=== PATIENT | female | born 1965 | race Caucasian/White ===

== ENCOUNTER → 2016-11-30 | Outpatient (REF) | payer OTHER ==
[2016-11-30 17:04] LABS: ALBUMIN 4.1 GM/DL (3.2-5.2); ALBUMIN/GLOBULIN RATIO 1.28 (1.00-1.93); ALKALINE PHOSPHATASE 60 U/L (45-117); ALT/SGPT 128 U/L (12-78); ANION GAP 6 MEQ/L (8-16); AST/SGOT 46 U/L (15-37); BILIRUBIN,TOTAL 0.6 MG/DL (0.2-1.0); BLOOD UREA NITROGEN 14 MG/DL (7-18); CALCIUM LEVEL 9.1 MG/DL (8.5-10.1); CARBON DIOXIDE LEVEL 34 MEQ/L (21-32); CHLORIDE LEVEL 102 MEQ/L (98-107); CHOLESTEROL LEVEL 208 MG/DL (<200); CREATININE FOR GFR 0.81 MG/DL (0.55-1.02); GLOMERULAR FILTRATION RATE > 60.0 (>51); GLUCOSE, FASTING 96 MG/DL (70-105); POTASSIUM SERUM 3.6 MEQ/L (3.5-5.1); SODIUM LEVEL 142 MEQ/L (136-145); TOTAL PROTEIN 7.3 GM/DL (6.4-8.2); TRIGLYCERIDES LEVEL 121 MG/DL (<150)
[2016-11-30 17:10] LABS: MEAN CORPUSCULAR HEMOGLOBIN 30.4 pg (27.0-33.0); MEAN CORPUSCULAR HGB CONC 33.2 g/dl (32.0-36.5); MEAN CORPUSCULAR VOLUME 91.5 fl (80.0-96.0); RED CELL DISTRIBUTION WIDTH 12.3 % (11.5-14.5); WHITE BLOOD COUNT 5.2 K/mm3 (4.0-10.0)
== END ==
LOC: M SFHCCLAY 10:44
PROVIDERS: ATTEND Nurse Practitioner Family
DX: I10 Essential (primary) hypertension (principal); R73.01 Impaired fasting glucose; E78.4 Other hyperlipidemia; E03.9 Hypothyroidism, unspecified; E55.9 Vitamin D deficiency, unspecified

== ENCOUNTER → 2017-03-05 | Outpatient (CLI) | payer OTHER ==
--- NOTE | 2017-03-08 16:33 | SLEEPHOME ---
DATE OF PROCEDURE: 03/05/2017 REFERRING PHYSICIAN: Dr. Calzada INTERPRETATION: Diagnostic home sleep testing was performed due to concern for the obstructive sleep apnea syndrome. For testing, a NOX-T3 respiratory monitoring device was used. Continuous record was made of pulse, oxygen saturation, airflow, chest and abdominal strain and body position. 10 hours and 59 minutes of data were reviewed. Of these, 8 hours and 13 minutes were marked as time in bed. During the interval marked time in bed, there were 79 respiratory events identified of 10 seconds in duration or greater for a respiratory event index of 9.6. The events were primarily obstructive. Baseline pulse rate 63 beats per minute. Pulse rate ranged 52 to 85. Baseline saturation 95%. Lowest oxygen saturation 89%. Testing was performed in both the supine and nonsupine positions. IMPRESSION: Abnormal home sleep testing with repetitive respiratory events and oxygen desaturations to 89% with a respiratory event index of 9.6, is consistent with the obstructive sleep apnea syndrome. RECOMMENDATION: The patient should be referred for formal sleep evaluation and in laboratory pressure titration given the frequency of events and oxygen desaturation seen.
== END ==
LOC: M SLEEP HO 14:30
PROVIDERS: ATTEND Internal Medicine Sleep Medicine
DX: G47.33 Obstructive sleep apnea (adult) (pediatric) (principal)

== ENCOUNTER → 2018-02-26 | Outpatient (REF) | payer OTHER ==
[2018-02-26 16:53] LABS: ESTIMATED AVERAGE GLUCOSE 114 MG/DL (60-110); HEMOGLOBIN A1c 5.6 %
[2018-02-26 17:05] LABS: HEMATOCRIT 40.6 % (36.0-47.0); HEMOGLOBIN 13.8 g/dl (12.0-15.5); MEAN CORPUSCULAR HEMOGLOBIN 31.1 pg (27.0-33.0); MEAN CORPUSCULAR VOLUME 91.4 fl (80.0-96.0); PLATELET COUNT, AUTOMATED 242 10^3/uL (150-450); RED BLOOD COUNT 4.44 10^6/uL (4.00-5.40); RED CELL DISTRIBUTION WIDTH 12.7 % (11.5-14.5); WHITE BLOOD COUNT 4.8 10^3/uL (4.0-10.0)
[2018-02-26 17:14] LABS: TOTAL 25(OH) VITAMIN D 34.2 NG/ML (30.0-100.0)
[2018-02-26 17:15] LABS: ALBUMIN 4.2 GM/DL (3.2-5.2); ALBUMIN/GLOBULIN RATIO 1.35 (1.00-1.93); ALKALINE PHOSPHATASE 56 U/L (45-117); ALT/SGPT 77 U/L (12-78); ANION GAP 9 MEQ/L (8-16); AST/SGOT 41 U/L (7-37); BLOOD UREA NITROGEN 19 MG/DL (7-18); CALCIUM LEVEL 9.1 MG/DL (8.5-10.1); CARBON DIOXIDE LEVEL 31 MEQ/L (21-32); CHLORIDE LEVEL 101 MEQ/L (98-107); CHOLESTEROL LEVEL 256 MG/DL (<200); CHOLESTEROL RISK RATIO 4.338 (<5); CREATININE FOR GFR 0.87 MG/DL (0.55-1.30); FREE THYROXINE INDEX 2.4 % (1.3-4.8); GLOMERULAR FILTRATION RATE > 60.0 (>51); GLUCOSE, FASTING 84 MG/DL (70-100); HDL CHOLESTEROL 59 MG/DL (>40); LDL CHOLESTEROL 170.2 MG/DL (<100); NON-HDL-C 197 MG/DL; POTASSIUM SERUM 3.2 MEQ/L (3.5-5.1); SODIUM LEVEL 141 MEQ/L (136-145); T UPTAKE 29 % (30-39); THYROXINE (T4) 8.4 UG/DL (4.5-12.0); TOTAL PROTEIN 7.3 GM/DL (6.4-8.2); TRIGLYCERIDES LEVEL 134 MG/DL (<150)
== END ==
LOC: M SFHCCLAY 13:22
DX: K21.9 Gastro-esophageal reflux disease without esophagitis (principal); I10 Essential (primary) hypertension; R73.01 Impaired fasting glucose; E78.4 Other hyperlipidemia; E03.9 Hypothyroidism, unspecified; E55.9 Vitamin D deficiency, unspecified
CPT/HCPCS: 84443

== ENCOUNTER → 2018-04-07 | Outpatient (REF) | payer OTHER | LOC: M SFHCPLAZ 04-08 11:05 | DX: L57.0 Actinic keratosis (principal); L81.4 Other melanin hyperpigmentation | CPT/HCPCS: 88305 ==

== ENCOUNTER → 2018-05-06 | Outpatient (REF) | payer OTHER | LOC: M SFHCPLAZ 17:25 | DX: D23.5 Other benign neoplasm of skin of trunk (principal) ==

== ENCOUNTER → 2018-06-26 | Outpatient (REF) | payer OTHER ==
[2018-06-26 12:52] LABS: ESTIMATED AVERAGE GLUCOSE 117 MG/DL (60-110); HEMOGLOBIN A1c 5.7 %
[2018-06-26 14:24] LABS: CHOLESTEROL LEVEL 226 MG/DL (<200); CHOLESTEROL RISK RATIO 4.346 (<5); HDL CHOLESTEROL 52 MG/DL (>40); LDL CHOLESTEROL 147 MG/DL (<100); NON-HDL-C 174 MG/DL; POTASSIUM SERUM 3.1 MEQ/L (3.5-5.1); TRIGLYCERIDES LEVEL 136 MG/DL (<150)
== END ==
LOC: M SFHCCLAY 08:49
DX: R73.01 Impaired fasting glucose (principal); E78.49 Other hyperlipidemia; E03.9 Hypothyroidism, unspecified

== ENCOUNTER → 2019-07-08 | Outpatient (REF) | payer OTHER ==
[2019-07-08 11:54] LABS: HEMATOCRIT 42.9 % (36.0-47.0); HEMOGLOBIN 13.7 g/dl (12.0-15.5); MEAN CORPUSCULAR HEMOGLOBIN 29.8 pg (27.0-33.0); MEAN CORPUSCULAR HGB CONC 31.9 g/dl (32.0-36.5); MEAN CORPUSCULAR VOLUME 93.3 fl (80.0-96.0); PLATELET COUNT, AUTOMATED 245 10^3/uL (150-450); WHITE BLOOD COUNT 7.5 10^3/uL (4.0-10.0)
[2019-07-08 12:21] LABS: ALBUMIN 4.3 GM/DL (3.2-5.2); ALT/SGPT 34 U/L (12-78); BILIRUBIN,TOTAL 0.8 MG/DL (0.2-1.0); BLOOD UREA NITROGEN 20 MG/DL (7-18); CALCIUM LEVEL 9.6 MG/DL (8.5-10.1); CARBON DIOXIDE LEVEL 32 MEQ/L (21-32); CHLORIDE LEVEL 102 MEQ/L (98-107); CHOLESTEROL LEVEL 244 MG/DL (<200); CHOLESTEROL RISK RATIO 4.979 (<5); CREATININE FOR GFR 0.81 MG/DL (0.55-1.30); GLOMERULAR FILTRATION RATE > 60.0 (>51); GLUCOSE, FASTING 110 MG/DL (70-100); HDL CHOLESTEROL 49 MG/DL (>40); LDL CHOLESTEROL 173 MG/DL (<100); NON-HDL-C 195 MG/DL; POTASSIUM SERUM 3.3 MEQ/L (3.5-5.1); SODIUM LEVEL 141 MEQ/L (136-145); THYROID STIMULATING HORMONE 0.123 uIU/ML (0.358-3.740); TOTAL 25(OH) VITAMIN D 45.6 NG/ML (30.0-100.0); TOTAL PROTEIN 7.1 GM/DL (6.4-8.2); TRIGLYCERIDES LEVEL 109 MG/DL (<150)
[2019-07-08 12:23] LABS: HEMOGLOBIN A1c 5.6 %
== END ==
LOC: M SFHCCLAY 08:09
PROVIDERS: ATTEND Nurse Practitioner Family
DX: K21.9 Gastro-esophageal reflux disease without esophagitis (principal); I10 Essential (primary) hypertension; R73.01 Impaired fasting glucose; E78.49 Other hyperlipidemia; E03.9 Hypothyroidism, unspecified; E55.9 Vitamin D deficiency, unspecified

== ENCOUNTER → 2020-05-02 | Outpatient (REF) | payer OTHER ==
[2020-05-02 12:59] LABS: HEMATOCRIT 42.4 % (36.0-47.0); HEMOGLOBIN 13.5 g/dl (12.0-15.5); MEAN CORPUSCULAR HEMOGLOBIN 30.8 pg (27.0-33.0); MEAN CORPUSCULAR HGB CONC 31.8 g/dl (32.0-36.5); MEAN CORPUSCULAR VOLUME 96.6 fl (80.0-96.0); PLATELET COUNT, AUTOMATED 235 10^3/uL (150-450); RED BLOOD COUNT 4.39 10^6/uL (4.00-5.40); WHITE BLOOD COUNT 5.1 10^3/uL (4.0-10.0)
[2020-05-02 13:34] LABS: ALBUMIN 4.2 GM/DL (3.2-5.2); ALT/SGPT 21 U/L (12-78); BILIRUBIN,TOTAL 0.4 MG/DL (0.2-1.0); BLOOD UREA NITROGEN 19 MG/DL (7-18); CALCIUM LEVEL 8.8 MG/DL (8.5-10.1); CARBON DIOXIDE LEVEL 29 MEQ/L (21-32); CHLORIDE LEVEL 105 MEQ/L (98-107); CHOLESTEROL LEVEL 348 MG/DL (<200); CHOLESTEROL RISK RATIO 4.767 (<5); CREATININE FOR GFR 0.88 MG/DL (0.55-1.30); GLOMERULAR FILTRATION RATE > 60.0 (>51); GLUCOSE, FASTING 89 MG/DL (70-100); HDL CHOLESTEROL 73 MG/DL (>40); LDL CHOLESTEROL 245 MG/DL (<100); NON-HDL-C 275 MG/DL; POTASSIUM SERUM 4.2 MEQ/L (3.5-5.1); SODIUM LEVEL 139 MEQ/L (136-145); TOTAL 25(OH) VITAMIN D 39.1 NG/ML (30.0-100.0); TOTAL PROTEIN 7.1 GM/DL (6.4-8.2); TRIGLYCERIDES LEVEL 148 MG/DL (<150)
== END ==
LOC: M SFHCCLAY 08:54
PROVIDERS: ATTEND Nurse Practitioner Family
DX: I10 Essential (primary) hypertension (principal); E78.5 Hyperlipidemia, unspecified; E03.9 Hypothyroidism, unspecified; E55.9 Vitamin D deficiency, unspecified

== ENCOUNTER → 2020-12-09 | Outpatient (REF) | payer OTHER ==
[2020-12-09 11:47] LABS: HEMATOCRIT 41.1 % (36.0-47.0); HEMOGLOBIN 13.4 g/dl (12.0-15.5); MEAN CORPUSCULAR HEMOGLOBIN 31.5 pg (27.0-33.0); MEAN CORPUSCULAR HGB CONC 32.6 g/dl (32.0-36.5); MEAN CORPUSCULAR VOLUME 96.7 fl (80.0-96.0); PLATELET COUNT, AUTOMATED 227 10^3/uL (150-450); RED BLOOD COUNT 4.25 10^6/uL (4.00-5.40); WHITE BLOOD COUNT 5.4 10^3/uL (4.0-10.0)
[2020-12-09 12:48] LABS: ALBUMIN 4.6 GM/DL (3.2-5.2); ALT/SGPT 34 U/L (12-78); BILIRUBIN,TOTAL 0.6 MG/DL (0.2-1.0); BLOOD UREA NITROGEN 11 MG/DL (7-18); CALCIUM LEVEL 9.2 MG/DL (8.5-10.1); CARBON DIOXIDE LEVEL 29 MEQ/L (21-32); CHLORIDE LEVEL 105 MEQ/L (98-107); CHOLESTEROL LEVEL 452 MG/DL (<200); CHOLESTEROL RISK RATIO 5.512 (<5); CREATININE FOR GFR 0.94 MG/DL (0.55-1.30); GLOMERULAR FILTRATION RATE > 60.0 (>51); GLUCOSE, FASTING 95 MG/DL (70-100); HDL CHOLESTEROL 82 MG/DL (>40); LDL CHOLESTEROL 326 MG/DL (<100); NON-HDL-C 370 MG/DL; POTASSIUM SERUM 3.8 MEQ/L (3.5-5.1); SODIUM LEVEL 141 MEQ/L (136-145); TOTAL 25(OH) VITAMIN D 26.2 NG/ML (30.0-100.0); TOTAL PROTEIN 7.5 GM/DL (6.4-8.2); TRIGLYCERIDES LEVEL 221 MG/DL (<150)
== END ==
LOC: M SFHCCLAY 08:11
PROVIDERS: ATTEND Nurse Practitioner Family
DX: E78.5 Hyperlipidemia, unspecified (principal); E03.9 Hypothyroidism, unspecified; K21.9 Gastro-esophageal reflux disease without esophagitis; I10 Essential (primary) hypertension; E55.9 Vitamin D deficiency, unspecified

== ENCOUNTER → 2021-08-24 | Outpatient (REF) | payer OTHER ==
[2021-08-24 12:25] LABS: BASO # 0.1 10^3/uL (0.0-0.2); BASO % 0.9 % (0.0-1.0); EOS # 0.1 10^3/uL (0.0-0.5); EOS % 1.8 % (0.0-3.0); LYMPH # 1.6 10^3/uL (1.5-5.0); LYMPH % 29.9 % (24.0-44.0); MEAN CORPUSCULAR HEMOGLOBIN 30.7 pg (27.0-33.0); MEAN CORPUSCULAR HGB CONC 31.7 g/dl (32.0-36.5); MEAN CORPUSCULAR VOLUME 96.9 fl (80.0-96.0); MONO # 0.5 10^3/uL (0.0-0.8); MONO % 9.2 % (2.0-8.0); NEUTROPHILS # 3.1 10^3/uL (1.5-8.5); PLATELET COUNT, AUTOMATED 202 10^3/uL (150-450); RED BLOOD COUNT 4.23 10^6/uL (4.00-5.40); WHITE BLOOD COUNT 5.4 10^3/uL (4.0-10.0)
[2021-08-24 13:48] LABS: HEMOGLOBIN A1c 5.6 %
[2021-08-24 14:33] LABS: ALT/SGPT 53 U/L (12-78); BILIRUBIN,TOTAL 0.3 MG/DL (0.2-1.0); BLOOD UREA NITROGEN 16 MG/DL (7-18); CALCIUM LEVEL 8.7 MG/DL (8.5-10.1); CARBON DIOXIDE LEVEL 31 MEQ/L (21-32); CHLORIDE LEVEL 105 MEQ/L (98-107); CREATININE FOR GFR 0.89 MG/DL (0.55-1.30); GLOMERULAR FILTRATION RATE > 60.0 (>51); GLUCOSE, FASTING 93 MG/DL (70-100); POTASSIUM SERUM 3.7 MEQ/L (3.5-5.1); SODIUM LEVEL 140 MEQ/L (136-145)
[2021-08-24 14:34] LABS: ALBUMIN 4.5 GM/DL (3.2-5.2); CHOLESTEROL LEVEL 426 MG/DL (<200); HDL CHOLESTEROL 62 MG/DL (>40); LDL CHOLESTEROL 305 MG/DL (<100); NON-HDL-C 364 MG/DL; TOTAL PROTEIN 7.5 GM/DL (6.4-8.2); TRIGLYCERIDES LEVEL 293 MG/DL (<150)
[2021-08-24 14:51] LABS: CREATININE, URINE 77.2 MG/DL; MALB URINE SIEMENS 16.4 MG/L; MAU/CREAT RATIO 21.2 MCG/MG (0.0-30.0)
[2021-08-25 10:39] LABS: TOTAL 25(OH) VITAMIN D 17.9 NG/ML (30.0-100.0)
== END ==
LOC: M SFHCCLAY 08:41
PROVIDERS: ATTEND Nurse Practitioner Family
DX: E03.9 Hypothyroidism, unspecified (principal); E55.9 Vitamin D deficiency, unspecified; I10 Essential (primary) hypertension; R73.01 Impaired fasting glucose; K21.9 Gastro-esophageal reflux disease without esophagitis; M32.9 Systemic lupus erythematosus, unspecified; D68.59 Other primary thrombophilia

== ENCOUNTER → 2022-01-08 | Outpatient (REF) | payer OTHER | LOC: M SFHCCLAY 15:27 | PROVIDERS: ATTEND Nurse Practitioner Family | DX: E03.9 Hypothyroidism, unspecified (principal); E55.9 Vitamin D deficiency, unspecified; I10 Essential (primary) hypertension; Z53.9 Procedure and treatment not carried out, unspecified reason ==

== ENCOUNTER → 2022-12-31 | Outpatient (REF) | payer OTHER ==
[2022-12-31 18:45] LABS: BASO # 0.1 10^3/uL (0.0-0.2); BASO % 0.8 % (0.0-1.0); EOS # 0.1 10^3/uL (0.0-0.5); EOS % 2.1 % (0.0-3.0); HEMATOCRIT 38.6 % (36.0-47.0); HEMOGLOBIN 12.3 g/dl (12.0-15.5); LYMPH # 1.9 10^3/uL (1.5-5.0); LYMPH % 30.9 % (24.0-44.0); MEAN CORPUSCULAR HEMOGLOBIN 30.6 pg (27.0-33.0); MEAN CORPUSCULAR HGB CONC 31.9 g/dl (32.0-36.5); MONO # 0.5 10^3/uL (0.0-0.8); MONO % 7.9 % (2.0-8.0); NEUTROPHILS # 3.6 10^3/uL (1.5-8.5); NEUTROPHILS % 58.1 % (36.0-66.0); PLATELET COUNT, AUTOMATED 204 10^3/uL (150-450); RED BLOOD COUNT 4.02 10^6/uL (4.00-5.40); WHITE BLOOD COUNT 6.1 10^3/uL (4.0-10.0)
[2022-12-31 19:14] LABS: ALBUMIN 4.8 G/DL (3.2-5.2); BILIRUBIN,TOTAL 0.6 MG/DL (0.3-1.2); CALCIUM LEVEL 9.5 MG/DL (8.5-10.1); CHOLESTEROL RISK RATIO 4.86 (<5); CREATININE FOR GFR 1.11 MG/DL (0.55-1.30); FREE T4 0.14 NG/DL (0.89-1.76); GLOMERULAR FILTRATION RATE 53.9 (>51); HDL CHOLESTEROL 70.9 MG/DL (>40); HEMOGLOBIN A1c 5.5 % (4.0-6.0); LDL CHOLESTEROL 240.7 MG/DL (<100); NON-HDL-C 274.1 MG/DL; POTASSIUM SERUM 3.8 MMOL/L (3.5-5.1); TOTAL PROTEIN 7.3 G/DL (5.7-8.2)
[2022-12-31 19:15] LABS: THYROID STIMULATING HORMONE 16.084 uIU/ML (0.55-4.78)
== END ==
LOC: M SFHCCLAY 14:18
PROVIDERS: ATTEND Nurse Practitioner Family
DX: E03.9 Hypothyroidism, unspecified (principal); E55.9 Vitamin D deficiency, unspecified; I10 Essential (primary) hypertension; R73.01 Impaired fasting glucose; K21.9 Gastro-esophageal reflux disease without esophagitis; M32.9 Systemic lupus erythematosus, unspecified; D68.59 Other primary thrombophilia

== ENCOUNTER → 2023-04-02 | Outpatient (REF) | payer OTHER ==
[2023-04-02 12:11] LABS: ALKALINE PHOSPHATASE 64 U/L (46-116); ALT/SGPT 16 U/L (7.0-40); AST/SGOT 11 U/L (<34); BILIRUBIN,TOTAL 0.3 MG/DL (0.3-1.2); BLOOD UREA NITROGEN 16 MG/DL (9-23); CARBON DIOXIDE LEVEL 30 MMOL/L (20-31); CHLORIDE LEVEL 106 MMOL/L (98-107); CHOLESTEROL LEVEL 308 MG/DL (<200); CHOLESTEROL RISK RATIO 5.07 (<5); CREATININE FOR GFR 0.74 MG/DL (0.55-1.30); FREE T4 0.28 NG/DL (0.89-1.76); GLOMERULAR FILTRATION RATE > 60.0 (>51); GLUCOSE, FASTING 109 MG/DL (60-100); HDL CHOLESTEROL 60.7 MG/DL (>40); LDL CHOLESTEROL 206.5 MG/DL (<100); NON-HDL-C 247.3 MG/DL; POTASSIUM SERUM 4.5 MMOL/L (3.5-5.1); SODIUM LEVEL 141 MMOL/L (136-145); THYROID STIMULATING HORMONE 10.327 uIU/ML (0.55-4.78); TOTAL PROTEIN 6.8 G/DL (5.7-8.2); TRIGLYCERIDES LEVEL 204 MG/DL (<150)
== END ==
LOC: M SFHCCLAY 07:45
PROVIDERS: ATTEND Nurse Practitioner Family
DX: E03.9 Hypothyroidism, unspecified (principal); E55.9 Vitamin D deficiency, unspecified; I10 Essential (primary) hypertension

== ENCOUNTER → 2023-08-29 | Outpatient (REF) | payer OTHER ==
[2023-08-29 19:17] LABS: BASO % 0.4 % (0.0-1.0); EOS # 0.1 10^3/uL (0.0-0.5); EOS % 0.8 % (0.0-3.0); HEMATOCRIT 37.4 % (36.0-47.0); LYMPH # 1.4 10^3/uL (1.5-5.0); LYMPH % 17.2 % (24.0-44.0); MEAN CORPUSCULAR HEMOGLOBIN 30.4 pg (27.0-33.0); MEAN CORPUSCULAR HGB CONC 32.1 g/dl (32.0-36.5); MEAN CORPUSCULAR VOLUME 94.7 fl (80.0-96.0); MONO # 0.7 10^3/uL (0.0-0.8); MONO % 8.6 % (2.0-8.0); NEUTROPHILS % 72.8 % (36.0-66.0); PLATELET COUNT, AUTOMATED 279 10^3/uL (150-450); RED BLOOD COUNT 3.95 10^6/uL (4.00-5.40); WHITE BLOOD COUNT 8.3 10^3/uL (4.0-10.0)
[2023-08-29 19:36] LABS: ALBUMIN 3.7 G/DL (3.2-5.2); ALKALINE PHOSPHATASE 55 U/L (46-116); ALT/SGPT 14 U/L (7.0-40); AST/SGOT 11 U/L (<34); BILIRUBIN,TOTAL 0.3 MG/DL (0.3-1.2); BLOOD UREA NITROGEN 14 MG/DL (9-23); CALCIUM LEVEL 8.8 MG/DL (8.5-10.1); CARBON DIOXIDE LEVEL 30 MMOL/L (20-31); CHLORIDE LEVEL 107 MMOL/L (98-107); CREATININE FOR GFR 0.77 MG/DL (0.55-1.30); GLOMERULAR FILTRATION RATE > 60.0 (>51); GLUCOSE, FASTING 91 MG/DL (60-100); POTASSIUM SERUM 4.3 MMOL/L (3.5-5.1); SODIUM LEVEL 139 MMOL/L (136-145); TOTAL PROTEIN 6.2 G/DL (5.7-8.2)
== END ==
LOC: M LABDRAWC 17:35
PROVIDERS: ATTEND Internal Medicine
DX: Z79.899 Other long term (current) drug therapy (principal)

== ENCOUNTER → 2023-10-01 | Outpatient (REF) | payer OTHER ==
[2023-10-01 11:44] LABS: BASO % 0.7 % (0.0-1.0); EOS # 0.1 10^3/uL (0.0-0.5); EOS % 2.3 % (0.0-3.0); HEMATOCRIT 40.9 % (36.0-47.0); HEMOGLOBIN 13.2 g/dl (12.0-15.5); LYMPH # 1.5 10^3/uL (1.5-5.0); LYMPH % 25.7 % (24.0-44.0); MEAN CORPUSCULAR HEMOGLOBIN 29.6 pg (27.0-33.0); MEAN CORPUSCULAR HGB CONC 32.3 g/dl (32.0-36.5); MEAN CORPUSCULAR VOLUME 91.7 fl (80.0-96.0); MONO # 0.6 10^3/uL (0.0-0.8); MONO % 10.4 % (2.0-8.0); NEUTROPHILS # 3.6 10^3/uL (1.5-8.5); NEUTROPHILS % 60.7 % (36.0-66.0); PLATELET COUNT, AUTOMATED 267 10^3/uL (150-450); RED BLOOD COUNT 4.46 10^6/uL (4.00-5.40)
[2023-10-01 11:45] LABS: C REACTIVE PROTEIN QUANTITATIV < 0.40 MG/DL (<1.0)
[2023-10-01 11:46] LABS: ALBUMIN 4.2 G/DL (3.2-5.2); ALKALINE PHOSPHATASE 57 U/L (46-116); ALT/SGPT 11 U/L (7.0-40); AST/SGOT 11 U/L (<34); BILIRUBIN,TOTAL 0.5 MG/DL (0.3-1.2); BLOOD UREA NITROGEN 13 MG/DL (9-23); CALCIUM LEVEL 8.9 MG/DL (8.5-10.1); CARBON DIOXIDE LEVEL 30 MMOL/L (20-31); CHLORIDE LEVEL 107 MMOL/L (98-107); CREATININE FOR GFR 0.57 MG/DL (0.55-1.30); GLOMERULAR FILTRATION RATE > 60.0 (>51); GLUCOSE, FASTING 99 MG/DL (60-100); POTASSIUM SERUM 4.2 MMOL/L (3.5-5.1); SODIUM LEVEL 140 MMOL/L (136-145); TOTAL PROTEIN 6.7 G/DL (5.7-8.2)
== END ==
LOC: M LABDRAWC 11:09
PROVIDERS: ATTEND Internal Medicine
DX: Z79.899 Other long term (current) drug therapy (principal)

== ENCOUNTER 2023-11-14 10:02 | Day surgery (SDC) | payer OTHER ==
[~2023-11-14] VITALS: Ht 157.5 cm; Wt 85.4 kg
[~2023-11-14 10:02] MED LIST: ALBU8.5H INH; AZAT50TA37 PO; BENL200I SC; HYDR200T46 PO; IMUR50TA10 PO; LEVO200T4 PO; LEVO25TA5 PO
[2023-11-14] MEDS: NS 1,000 ML IV ONE (10:38)
[2023-11-14] MEDS ORDERED: fentaNYL 100 MCG/2 ML INJECTION As Ordered ONE (11:45)
[2023-11-14] MEDS ORDERED: LIDOCAINE 2% 100MG/5ML SDV (FOR ANES.) As Ordered ONE (11:49)
[2023-11-14] MEDS ORDERED: propofoL 200 MG/20 ML VIAL As Ordered ONE (11:49)
[2023-11-14 12:12] VITALS: TEMP 98.4
[2023-11-14 12:30] VITALS: BP 171/89; O2SAT 95
== END 2023-11-14 12:40 | disposition home or self-care (01) ==
LOC: M OPP 10:02
PROVIDERS: ATTEND Surgery
DX: Z12.11 Encounter for screening for malignant neoplasm of colon (principal); K31.89 Other diseases of stomach and duodenum; R13.10 Dysphagia, unspecified; R10.13 Epigastric pain; J45.909 Unspecified asthma, uncomplicated; M32.9 Systemic lupus erythematosus, unspecified; G47.30 Sleep apnea, unspecified; Z87.891 Personal history of nicotine dependence; Z79.52 Long term (current) use of systemic steroids; Z79.890 Hormone replacement therapy; Z79.899 Other long term (current) drug therapy; Z88.6 Allergy status to analgesic agent; Z91.010 Allergy to peanuts; Z91.040 Latex allergy status; Z91.048 Other nonmedicinal substance allergy status
CPT/HCPCS: 43239; 45378; 88305; J3010

== ENCOUNTER → 2024-01-16 | Outpatient (CLI) | payer OTHER ==
[~2024-01-16] MED LIST changes: +E-Z-GAS II EFFERVESCENT PACKET (SODIUM BICARB./CITRIC ACID/SIMETHICONE) As Ordered ONE; +E-Z-HD 98% w/w 340GM SUSP BTL As Ordered ONE; +E-Z-PAQUE 96% w/w SUSP 176GM BTL As Ordered ONE
== END ==
LOC: M RAD 09:42
PROVIDERS: ATTEND Physician Assistant
DX: R13.10 Dysphagia, unspecified (principal)

== ENCOUNTER → 2024-04-07 | Outpatient (REF) | payer OTHER ==
[~2024-04-07] MED LIST changes: -E-Z-GAS II EFFERVESCENT PACKET (SODIUM BICARB./CITRIC ACID/SIMETHICONE) As Ordered ONE; -E-Z-HD 98% w/w 340GM SUSP BTL As Ordered ONE; -E-Z-PAQUE 96% w/w SUSP 176GM BTL As Ordered ONE
[2024-04-07 11:33] LABS: BASO % 0.7 % (0.0-1.0); EOS # 0.1 10^3/uL (0.0-0.5); EOS % 1.6 % (0.0-3.0); HEMATOCRIT 39.5 % (36.0-47.0); HEMOGLOBIN 12.8 g/dl (12.0-15.5); LYMPH # 1.3 10^3/uL (1.5-5.0); LYMPH % 22.4 % (24.0-44.0); MEAN CORPUSCULAR HEMOGLOBIN 31.8 pg (27.0-33.0); MEAN CORPUSCULAR HGB CONC 32.4 g/dl (32.0-36.5); MONO # 0.5 10^3/uL (0.0-0.8); MONO % 9.6 % (2.0-8.0); NEUTROPHILS # 3.7 10^3/uL (1.5-8.5); NEUTROPHILS % 65.5 % (36.0-66.0); PLATELET COUNT, AUTOMATED 267 10^3/uL (150-450); RED BLOOD COUNT 4.03 10^6/uL (4.00-5.40); WHITE BLOOD COUNT 5.6 10^3/uL (4.0-10.0)
[2024-04-07 11:41] LABS: IRON (FE) 56 UG/DL (50-170); PERCENT SATURATION 17.7 % (13.2-45.0); TOTAL IRON BINDING CAPACITY 316 UG/DL (250-425)
[2024-04-07 11:42] LABS: ALBUMIN 4.2 G/DL (3.2-5.2); ALKALINE PHOSPHATASE 55 U/L (46-116); ALT/SGPT 13 U/L (7.0-40); AST/SGOT 10 U/L (<34); BILIRUBIN,TOTAL 0.4 MG/DL (0.3-1.2); BLOOD UREA NITROGEN 16 MG/DL (9-23); CALCIUM LEVEL 9.1 MG/DL (8.5-10.1); CARBON DIOXIDE LEVEL 30 MMOL/L (20-31); CHLORIDE LEVEL 109 MMOL/L (98-107); CHOLESTEROL LEVEL 168 MG/DL (<200); CHOLESTEROL RISK RATIO 2.96 (<5); CREATININE FOR GFR 0.77 MG/DL (0.55-1.30); GLOMERULAR FILTRATION RATE > 60.0 (>51); GLUCOSE, FASTING 94 MG/DL (60-100); HDL CHOLESTEROL 56.6 MG/DL (>40); LDL CHOLESTEROL 95.4 MG/DL (<100); NON-HDL-C 111.4 MG/DL; POTASSIUM SERUM 4.2 MMOL/L (3.5-5.1); SODIUM LEVEL 141 MMOL/L (136-145); TOTAL PROTEIN 6.8 G/DL (5.7-8.2); TRIGLYCERIDES LEVEL 80 MG/DL (<150)
[2024-04-07 11:43] LABS: THYROID STIMULATING HORMONE 4.882 uIU/ML (0.55-4.78); TOTAL 25(OH) VITAMIN D 37.7 NG/ML (20.0-100.0)
[2024-04-07 11:44] LABS: FREE T4 0.65 NG/DL (0.89-1.76)
[2024-04-07 11:47] LABS: HEMOGLOBIN A1c 5.2 % (4.0-6.0)
[2024-04-07 11:55] LABS: CREATININE, URINE 102.2 MG/DL; MALB URINE SIEMENS < 3.0 MG/L; MAU/CREAT RATIO 2.9 MCG/MG (0.0-30.0)
== END ==
LOC: M SFHCCLAY 08:20
PROVIDERS: ATTEND Nurse Practitioner Family
DX: E03.9 Hypothyroidism, unspecified (principal)

== ENCOUNTER → 2024-05-11 | Outpatient (CLI) | payer OTHER | LOC: M RAD 10:22 | PROVIDERS: ATTEND Nurse Practitioner Family | DX: K11.20 Sialoadenitis, unspecified (principal) ==

== ENCOUNTER → 2024-07-31 | Outpatient (CLI) | payer OTHER ==
[~2024-07-31] MED LIST changes: +ISOVUE-370 76% 100ML VIAL ONE
== END ==
LOC: M PLAIMG 09:55
PROVIDERS: ATTEND Otolaryngology
DX: K11.20 Sialoadenitis, unspecified (principal); R59.0 Localized enlarged lymph nodes

== ENCOUNTER → 2024-10-05 | Outpatient (REF) | payer OTHER ==
[~2024-10-05] MED LIST changes: -ISOVUE-370 76% 100ML VIAL ONE
[2024-10-05 13:38] LABS: BASO % 0.5 % (0.0-1.0); EOS # 0.1 10^3/uL (0.0-0.5); HEMATOCRIT 40.1 % (36.0-47.0); HEMOGLOBIN 12.9 g/dl (12.0-15.5); LYMPH # 1.6 10^3/uL (1.5-5.0); LYMPH % 25.3 % (24.0-44.0); MEAN CORPUSCULAR HEMOGLOBIN 30.5 pg (27.0-33.0); MEAN CORPUSCULAR HGB CONC 32.2 g/dl (32.0-36.5); MEAN CORPUSCULAR VOLUME 94.8 fl (80.0-96.0); MONO # 0.5 10^3/uL (0.0-0.8); MONO % 8.4 % (2.0-8.0); NEUTROPHILS % 64.5 % (36.0-66.0); PLATELET COUNT, AUTOMATED 266 10^3/uL (150-450); RED BLOOD COUNT 4.23 10^6/uL (4.00-5.40); WHITE BLOOD COUNT 6.2 10^3/uL (4.0-10.0)
[2024-10-05 13:49] LABS: HEMOGLOBIN A1c 5.5 % (4.0-6.0)
[2024-10-05 14:09] LABS: ALBUMIN 4.4 G/DL (3.2-5.2); ALKALINE PHOSPHATASE 52 U/L (35-104); ALT/SGPT 44 U/L (7.0-40); AST/SGOT 49 U/L (<34); BILIRUBIN,TOTAL 0.6 MG/DL (0.3-1.2); BLOOD UREA NITROGEN 14 MG/DL (9-23); CALCIUM LEVEL 9.3 MG/DL (8.5-10.1); CARBON DIOXIDE LEVEL 30 MMOL/L (20-31); CHLORIDE LEVEL 107 MMOL/L (98-107); CREATININE FOR GFR 0.94 MG/DL (0.55-1.30); GLOMERULAR FILTRATION RATE > 60.0 (>51); GLUCOSE, FASTING 91 MG/DL (60-100); MAGNESIUM LEVEL 2.4 MG/DL (1.8-2.4); SODIUM LEVEL 142 MMOL/L (136-145); TOTAL PROTEIN 7.2 G/DL (5.7-8.2)
[2024-10-05 14:11] LABS: THYROID STIMULATING HORMONE 11.651 uIU/ML (0.55-4.78)
== END ==
LOC: M SFHCCLAY 08:39
PROVIDERS: ATTEND Nurse Practitioner Family
DX: E03.9 Hypothyroidism, unspecified (principal); E55.9 Vitamin D deficiency, unspecified; I10 Essential (primary) hypertension; R73.01 Impaired fasting glucose; K21.9 Gastro-esophageal reflux disease without esophagitis; M32.9 Systemic lupus erythematosus, unspecified; D68.59 Other primary thrombophilia; R19.7 Diarrhea, unspecified

== ENCOUNTER 2024-11-02 07:45 | Day surgery (SDC) | payer OTHER ==
[~2024-11-02] VITALS: Ht 154.9 cm; Wt 80.2 kg
[~2024-11-02 07:45] MED LIST changes: +VITA100093 PO
[2024-11-02] MEDS ORDERED: CLAR10CA3 PO (09:23)
[2024-11-02] MEDS ORDERED: FLON1SPR (09:23)
[2024-11-02] MEDS: LR 1,000 ML IV SCH (09:43)
[2024-11-02] MEDS ORDERED: METOCLOPRAMIDE INJ 10MG/2ML VIAL As Ordered ONE (10:57)
[2024-11-02] MEDS ORDERED: dexmedeTOMIDine (4MCG/ML)200MCG/50ML BTL (PRECEDEX) As Ordered ONE (10:57)
[2024-11-02] MEDS ORDERED: fentaNYL 100 MCG/2 ML INJECTION As Ordered ONE (10:57)
[2024-11-02] MEDS ORDERED: SUGAMMADEX SODIUM 500 MG/5 ML VIAL (BRIDION) As Ordered ONE (10:58)
[2024-11-02] MEDS ORDERED: ACETAMINOPHEN 1000MG/100ML IV BAG As Ordered ONE (10:58)
[2024-11-02] MEDS ORDERED: propofoL 200 MG/20 ML VIAL As Ordered ONE (10:58)
[2024-11-02] MEDS ORDERED: LIDOCAINE 2% 100MG/5ML SDV (FOR ANES.) As Ordered ONE (10:58)
[2024-11-02] MEDS ORDERED: ROCURONIUM BROMIDE 50MG/5ML VIAL As Ordered ONE (10:58)
[2024-11-02] MEDS ORDERED: MIDAZOLAM INJ 2MG/2ML VIAL As Ordered ONE (11:04)
[2024-11-02] MEDS ORDERED: ePHEDrine SULFATE 25 MG/5 ML(5MG/ML) SYRINGE As Ordered ONE (11:53)
[2024-11-02] MEDS ORDERED: PHENYLephrine 500MCG 5ML (100MCG/ML) SYRINGE As Ordered ONE (11:53)
[2024-11-02] MEDS: OXYMETAZOLINE 0.05% NASAL SPRAY As Ordered ONE (11:57)
[2024-11-02] MEDS: METHYLENE BLUE 0.5% (5MG/ML) 10 ML AMP (PROVAYBLUE) As Ordered ONE (11:57)
[2024-11-02] MEDS: LIDOCAINE W/EPINEPHRINE 1% 20ML VIAL As Ordered ONE (12:18)
[2024-11-02] MEDS ORDERED: oxyCODONE 5MG TAB PO PRN (12:35)
[2024-11-02] MEDS ORDERED: fentaNYL 100 MCG/2 ML INJECTION IV PRN (12:35)
[2024-11-02] MEDS ORDERED: MORPHINE 2 MG/ML 1ML VIAL IV PRN (12:35)
[2024-11-02 13:04] VITALS: BP 124/74; TEMP 97.6; O2SAT 91
== END 2024-11-02 13:34 | disposition home or self-care (01) ==
LOC: M SDC 07:45
PROVIDERS: ATTEND Otolaryngology
DX: J38.1 Polyp of vocal cord and larynx (principal); D38.0 Neoplasm of uncertain behavior of larynx; H69.93 Unspecified Eustachian tube disorder, bilateral; F45.8 Other somatoform disorders; J31.0 Chronic rhinitis; R09.82 Postnasal drip; K21.9 Gastro-esophageal reflux disease without esophagitis; I10 Essential (primary) hypertension; E78.5 Hyperlipidemia, unspecified; J45.909 Unspecified asthma, uncomplicated; G47.33 Obstructive sleep apnea (adult) (pediatric); E55.9 Vitamin D deficiency, unspecified; Z88.8 Allergy status to other drugs, medicaments and biological substances; Z91.040 Latex allergy status; Z91.010 Allergy to peanuts
CPT/HCPCS: 31536; 88305; J0131; J1100; J2250; J2371; J2765; J3010; Q9968